=== PATIENT | female | born 1990 | race Hispanic/Latino ===

== ENCOUNTER 2019-02-09 09:45 | Inpatient (IN) | payer MEDICAID ==
--- NOTE | 2019-02-09 10:12 | C.PDOC ---
History Of Present Illness 28 y/o female, with history of depression, bipolar and manic disorder, comes in to ED stating she has thoughts of hurting herself and other people. Patient reports she was recently released from long term 2 months ago and did not go to a program after. Patient denies any physical complaints at this time. Time Seen by Provider: 02/09/19 10:09 Chief Complaint (Nursing): Psychiatric Evaluation History Per: Patient History/Exam Limitations: no limitations Onset/Duration Of Symptoms: Days Current Symptoms Are (Timing): Still Present Past Medical History Reviewed: Historical Data, Nursing Documentation, Vital Signs Family History: States: No Known Family Hx Review Of Systems Except As Marked, All Systems Reviewed And Found Negative. Constitutional: Negative for: Fever Psych: Positive for: Suicidal ideation, Other (homicidal ideation) Physical Exam - Physical Exam Appears: Non-toxic, No Acute Distress Skin: Warm, Dry Head: Atraumatic, Normacephalic Eye(s): bilateral: Normal Inspection Oral Mucosa: Moist Neck: Supple Cardiovascular: Rhythm Regular, No Murmur Respiratory: Normal Breath Sounds, No Rales, No Rhonchi, No Wheezing Extremity: Bilateral: Atraumatic, Normal Color And Temperature, Normal ROM Neurological/Psych: Oriented x3, Normal Speech ED Course And Treatment - Laboratory Results Result Diagrams: 02/09/19 14:01 02/09/19 11:33 O2 Sat by Pulse Oximetry: 95 (RA) Pulse Ox Interpretation: Normal Medical Decision Making Medical Decision Making: Plan: --Labs --UA --Ativan IM Psych called, patient was not admitted at [facility], got kicked out of the emergency room. Patient called the police and police brought her here. Disposition - Disposition Disposition: HOSPITALIZED Disposition Time: 14:10 Condition: GOOD Forms: Skin Scan (Paraguayan) - Clinical Impression Clinical Impression: Manic bipolar I disorder, Borderline personality disorder - PA / SUPPLY CHAIN MANAGER / Resident Statement MD/DO has reviewed & agrees with the documentation as recorded. - Scribe Statement The provider has reviewed the documentation as recorded by the Scribe Mary Wiggins All medical record entries made by the Scribe were at my direction and personally dictated by me. I have reviewed the chart and agree that the record accurately reflects my personal performance of the history, physical exam, medical decision making, and the department course for this patient. I have also personally directed, reviewed, and agree with the discharge instructions and disposition.
[2019-02-09 10:16] VITALS: BMI 29.0
[2019-02-09 11:45] LABS: HCG,QUALITATIVE URINE NEGATIVE (NEGATIVE)
[2019-02-09 11:51] LABS: ALB/GLOB RATIO 1.1 (1.0-2.1); ALT/SGPT 99 U/L (9-52); AST/SGOT 50 U/L (14-36); BLOOD UREA NITROGEN 16 mg/dL (7-17); CALCIUM 9.6 mg/dl (8.6-10.4); GFR NON-AFRICAN AMERICAN > 60; SQUAMOUS EPITHIAL 2 /hpf (0-5); URINE BACTERIA OCC (<OCC); URINE BILIRUBIN NEGATIVE (NEGATIVE); URINE BLOOD NEGATIVE (NEGATIVE); URINE CLARITY Hazy (Clear); URINE COLOR Amber (YELLOW); URINE GLUCOSE (UA) NORMAL (Normal); URINE LEUKOCYTE ESTERASE 2+ Leu/uL (Negative); URINE PROTEIN NEGATIVE (NEGATIVE); URINE UROBILINOGEN NORMAL mg/dL (0.2-1.0)
[2019-02-09 12:01] LABS: BARBITURATES, UR NEGATIVE (NEGATIVE); BENZODIAZEPINES, UR NEGATIVE (NEGATIVE)
[2019-02-09 12:25] LABS: PHENCYCLIDINE, UR NEGATIVE (NEGATIVE)
[2019-02-09 13:10] LABS: OPIATES, UR POSITIVE (NEGATIVE)
[2019-02-09 14:04] LABS: BASO % 0.7 % (0.0-2.0); EOS # 0.1 K/uL (0.0-0.7); EOS % 1.7 % (0.0-4.0); LYMPH # 1.1 K/uL (1.0-4.3); LYMPH % 23.1 % (20.0-40.0); MEAN CELL VOLUME 95.2 fL (81.0-99.0); MEAN CORPUSCULAR HEMOGLOBIN 32.2 pg (27.0-31.0); MEAN CORPUSCULAR HGB CONC 33.8 g/dL (33.0-37.0); MEAN PLATELET VOLUME 8.4 fL (7.2-11.7); MONO # 0.4 K/uL (0.0-0.8); NEUT # 3.2 K/uL (1.8-7.0); NEUT % 66.5 % (50.0-75.0); RBC 4.03 Mil/uL (3.80-5.20); RED CELL DISTRIBUTION WIDTH 13.8 % (11.5-14.5); WHITE BLOOD COUNT 4.8 K/uL (4.8-10.8)
--- NOTE | 2019-02-09 17:48 | PCM.BM ---
<Omar Bourne - Last Filed: 02/09/19 17:46> Treatment Plan Problems - Problems identified on initial assessmt Ineffective impulse Control Date Initiated: 02/09/19 Time Initiated: 15:50 Assessment reference: NA Status: Active Anxiety Related to substance use Date Initiated: 02/09/19 Time Initiated: 15:50 Assessment reference: NA Status: Active High Risk: Violence Date Initiated: 02/09/19 Time Initiated: 15:50 Assessment reference: NA Status: Active Treatment assets and liabiliti Patient Assests: insightful, negotiates basic needs Patient Liabilities: substance abuse - Milieu Protocol Maintain good personal hygiene: daily Encourage regular showers, daily Remind patient to perform daily oral care, daily Assist patient to perform ADL's Conduct patient checks and document Observation sheet: Q15 minutes Maintain personal safety: every shift Educate patient to report safety concerns to staff Medication safety: Monitor for expected outcome, potential side effects: every shift, Assess barriers to learning: every shift, Assess readiness for medication education: every shift <Mirella Chiu - Last Filed: 02/10/19 11:23> - Diagnosis (1) Manic bipolar I disorder Status: Acute Interventions: 02/10/19 11:23 * Assess/adjust medications daily and /or as needed * See patient on an individual basis 7x/week to assess level of manic behaviors and stability * Discuss risks, benefits, side effects and alternatives of medications * <Tereza Hernandez - Last Filed: 02/10/19 15:26> Family Contact Family involvement: Patient does not wish Family/SO involvement Family contact: Patient declines to allow family contact at present - Goals for Treatment Patient goals for treatment: "I want to got to a rehab." Discharge/Continuing Care - Education Needs Education Needs: Patient Medication, Patient Diagnosis/Disease Process, Patient Coping Skills, Patient Placement options, Patient Community resources - Discharge Discharge Criteria: Free of Suicidal thoughts, Free of agitation, Normal sleep pattern, Ability to care for self, No longer exhibiting s/s of withdrawal, Red uction of target symptoms Discharge to:: Substance Abuse Rehab - Treatment Team Participation Discussed with Family/SO: No Was Patient/Family/SO present at Treatment Team Meeting: Yes
--- NOTE | 2019-02-10 10:18 | PCM.PSYCH ---
Initial Psychiatric Evaluation - Initial Psychiatric Evaluation Type of Admission: Voluntary Legal Status: Capacity Chief Complaint (in patient's own words): I was feeling increasingly suicidal and homicidal History of Present Illness and Precipitating Events: Patient is a 28-year-old single female with a past medical history of bipolar anxiety and intrusive thoughts came to the hospital with suicidal thoughts and homicidal thoughts., She was brought in by the [place] police stating that shes been feeling quite depressed and that she wants to hurt herself. Patient told the police that she had access to a weapon. Reports that shes feeling suicidal and homicidal. Her last suicide attempt was three months ago while in longterm. States that she tried to hang herself with that sheet. States that the life science technical officer pulled her down. If she were to try again she states that she would overdose on pills. States that she wants to kill herself, but before doing so she wants to write letters to the people that "wronged her in the past". She also wants to write a letter to God asking for forgiveness. Pt states that she is not anabaptist, but she feels like were all going to hell. Patient previously receives social se curity due to mental condition. States that she cannot work due to her paranoia. Reports decreased sleep, nightmares tremors., racing and intrusive thought. Pt States that she feels guilty for the things that she has done. States that she uses drugs to help with her thoughts. States that the only thing that she enjoys is using drugs. She abuse 16 bags of IV heroin per day. She last used heroin 2 days ago. Reports spending about 40 dollars per day on cocaine. Pt has been on methadone in the past. She currently feels anxious, nauseous, states that she has been sweating, and that she had diarrhea last night. Denies visual or auditory hallucinations. ?Her psychiatrist is Dr. Roge Vigil in [facility]. she reports withdrawal symptoms including nausea, vomiting, cramps, joint pains, back pains. She remained irritable, agitated and angry throughout the interview. Past medical history History of seizures Current Medications: Active Medications Generic Name Dose Route Start Last Admin Trade Name Freq PRN Reason Stop Dose Admin Al Hydrox/Mg Hydrox/Simethicone 30 ml 02/09/19 20:08 Maalox 30 Ml PO TID PRN Indigestion / Heartburn Clonidine HCl 0.1 mg 02/09/19 20:08 Catapres PO Q4 PRN COWS Score More or Equal to 5 Dicyclomine HCl 10 mg 02/09/19 20:08 Bentyl PO Q6 PRN Muscle spasm Gabapentin 100 mg 02/10/19 10:00 02/10/19 09:15 Neurontin PO 100 mg TID ANAMIKA Administration Hydroxyzine HCl 25 mg 02/09/19 20:09 02/09/19 22:12 Atarax PO 25 mg Q6 PRN Administration Anxiety Levetiracetam 500 mg 02/09/19 18:00 02/10/19 09:15 Keppra PO 500 mg BID ANAMIKA Administration Loperamide HCl 2 mg 02/09/19 20:08 Imodium PO Q8 PRN Diarrhea Ondansetron HCl 4 mg 02/09/19 20:08 Zofran Tab PO Q8 PRN Nausea/Vomiting Quetiapine Fumarate 300 mg 02/09/19 22:00 02/09/19 21:04 Seroquel PO 300 mg HS ANAMIKA Administration Past Psychiatric History - Past Psychiatric History Previous Treatment History: Inpatient Pertinent Medical Hx (Current Medical&Sleep Prob, Allergies): Allergies Allergy/AdvReac Type Severity Reaction Status Date / Time prochlorperazine Allergy Verified 02/09/19 10:10 [From Compazine] Citalopram [celeXA] 20 mg PO DAILY 02/09/19 Methadone [Methadone HCl] 15 mg PO 02/09/19 QUEtiapine [SEROquel] 300 mg PO BID 02/09/19 levETIRAcetam [Keppra] 500 mg PO BID 02/09/19 Review of Systems - Review of Systems All systems: reviewed and no additional remarkable complaints except - Psychiatric Psychiatric: Anxiety, Irritability, Suicidal Ideation Mental Status Examination - Personal Presentation Personal Presentation: Looks stated age - Affect Affect: Constricted, Depressed - Motor Activity Motor Activity: Calm - Reliability in Providing Information Reliability in Providing Information: Fair - Speech Speech: Organized - Mood Mood: Depressed, Anxious - Formal Thought Process Formal Thought Process: No Impairment - Obsessions/Compulsions Obsessions: No Compulsions: No - Cognitive Functions Orientation: Person, Place, Situation, Time Sensorium: Alert Attention/Concentration: Attentive Abstract Thinking: Hodge Estimate of Intelligence: Below average Judgement: Imparied, as evidence by: Poor judgement, Imparied, as evidence by: Lack of insight into illness - Risk Risk: Suicidal, Diminished functioning - Limitations Limitations: Living alone DSM 5 DX - DSM 5 DSM 5 Diagnosis: Bipolar disorder mixed severe with psychotic features opioid use disorder severe Opioid withdrawal History of seizures - Recommended/Plan of Treatment Treatment Recommendations and Plan of Treatment: Bipolar disorder mixed severe with psychotic features opioid use disorder severe Opioid withdrawal History of seizures CBT Psychoeducation supportive therapy and group therapy [place] for mood Seroquel for psychosis Hydroxyzine for anxiety Methadone taper Neurontin for augmentation
[2019-02-11] MEDS: Aluminum Hydroxide/Magnesium Hydroxide Susp (30 mL) PO PRN ×2 (13:37→17:16)
--- NOTE | 2019-02-11 20:21 | PCM.PYCHPN ---
Psychiatric Progress Note - Psychiatric Progress Note Patient seen today, length of contact: 15 minutes Patient Chief Complaint: I am still feeling depressed but my sleep is better. Problems Identified/Issues Discussed: Patient seen, chart reviewed, case discussed with the staff. Issues related to illness and treatment were discussed with the patient and staff. Reported compliant with treatment with no adverse effects. Tolerating treatment very well. Patient is still feeling withdrawal symptoms including body aches, sweating, nausea, abdominal cramps. Patient has UTI, will start ciprofloxacin. Patient agreed. Aftercare discussed with the patient. Patient needs more time for stabilization. Patient denied any delusions, auditory or visual hallucinations, suicidal ideations or homicidal ideations at the time of evaluation. Medical Problems: Seizure disorder UTI Diagnostic Results: Reviewed Medication Change: Yes (Started ciprofloxacin 500 mg twice a day) Medical Record Reviewed: Yes Mental Status Examination - Cognitive Function Orientation: Person, Place, Situation, Time Memory: Intact Attention: WNL Concentration: WNL Association: WNL Fund of Knowledge: WNL Decription of patient's judgement and insights: Fair - Mood Mood: Depressed - Affect Affect: Depressed - Speech Speech: Appropriate - Formal Thought Process Formal Thought Process: No Impairment Psychotic Thoughts and Behaviors: None - Suicidal Ideation Suicidal Ideation: No - Homicidal Ideation Homicidal Ideation: Yes Goal/Treatment Plan - Goal/Treatment Plan Need for Continued Stay: Remain at risks for inpatient hospitalization, Discharge may exacerbated symptoms, Severe functional impairment Progress Toward Problem(s) and Goals/Treatment Plan: Patient/staff education. Supportive therapy. CBT for relapse prevention. [place] for abstinence. Will start ciprofloxacin 500 mg twice a day for UTI. Continue rest of the treatment as before. Estimated Date of D/C: 02/16/19 - Smoking Cessation Smoking Cessation Initiated: No
[2019-02-13] MEDS: Aluminum Hydroxide/Magnesium Hydroxide Susp (30 mL) PO PRN (09:26)
--- NOTE | 2019-02-13 21:01 | PCM.PYCHPN ---
Psychiatric Progress Note - Psychiatric Progress Note Patient seen today, length of contact: 15 minutes Patient Chief Complaint: I am still feeling depressed but my sleep is little better. Problems Identified/Issues Discussed: Patient seen, chart reviewed, case discussed with the staff. Issues related to illness and treatment were discussed with the patient and staff. Reported compliant with treatment with no adverse effects. Tolerating treatment very well. Patient is still feeling some withdrawal symptoms including body aches, sweating, nausea, abdominal cramps. Patient reported that she is anxious and worried about her aftercare. Patient has no ID and was told by the psychosocial rehabilitation counselor that her options are limited. Patient was very uncooperative during the evaluation especially with the issue of her ID. Staff reported that patient was more isolative and less sedative. Aftercare discussed with the patient. Patient needs more time for stabilization. Patient denied any delusions, auditory or visual hallucinations, suicidal ideations or homicidal ideations at the time of evaluation. Medical Problems: Seizure disorder UTI Diagnostic Results: Reviewed DSM 5 Symptoms Update: Some improvement with treatment. Medication Change: No Medical Record Reviewed: Yes Mental Status Examination - Cognitive Function Orientation: Person, Place, Situation, Time Memory: Intact Attention: WNL Concentration: WNL Association: [facility] Fund of Knowledge: [facility] Decription of patient's judgement and insights: Fair - Mood Mood: Depressed - Affect Affect: Depressed - Speech Speech: Appropriate - Formal Thought Process Formal Thought Process: No Impairment Psychotic Thoughts and Behaviors: None - Suicidal Ideation Suicidal Ideation: No - Homicidal Ideation Homicidal Ideation: No Goal/Treatment Plan - Goal/Treatment Plan Need for Continued Stay: Remain at risks for inpatient hospitalization, Discharge may exacerbated symptoms, Severe functional impairment Progress Toward Problem(s) and Goals/Treatment Plan: Patient/staff education. Supportive therapy. CBT for relapse prevention. [place] for abstinence. Continue treatment as before. Estimated Date of D/C: 02/16/19 - Smoking Cessation Smoking Cessation Initiated: No
[2019-02-14 06:13] VITALS: O2SAT 98
--- NOTE | 2019-02-14 14:32 | PCM.PYCHPN ---
Psychiatric Progress Note - Psychiatric Progress Note Patient seen today, length of contact: 15 minutes Patient Chief Complaint: I am feeling little better. I am more anxious about my aftercare. Problems Identified/Issues Discussed: Patient seen, chart reviewed, case discussed with the staff. Issues related to illness and treatment were discussed with the patient and staff. Reported compliant with treatment with no adverse effects. Tolerating treatment very well. Patient reported feeling little better. Patient reported that she is anxious and worried about her aftercare. Patient has no ID and was told by the group social worker that her options are limited. Patient was cooperative today during the evaluation. Staff reported that patient was less isolative. Aftercare discussed with the patient. Patient needs more time for stabilization. Patient denied any delusions, auditory or visual hallucinations, suicidal ideations or homicidal ideations at the time of evaluation. Medical Problems: Seizure disorder UTI Diagnostic Results: Reviewed DSM 5 Symptoms Update: Some improvement with treatment. Medication Change: No Medical Record Reviewed: Yes Mental Status Examination - Cognitive Function Orientation: Person, Place, Situation, Time Memory: Intact Attention: WNL Concentration: WNL Association: WN Fund of Knowledge: [facility] Decription of patient's judgement and insights: Fair - Mood Mood: Depressed - Affect Affect: Depressed - Speech Speech: Appropriate - Formal Thought Process Formal Thought Process: No Impairment Psychotic Thoughts and Behaviors: None - Suicidal Ideation Suicidal Ideation: No - Homicidal Ideation Homicidal Ideation: No Goal/Treatment Plan - Goal/Treatment Plan Need for Continued Stay: Remain at risks for inpatient hospitalization, Discharge may exacerbated symptoms, Severe functional impairment Progress Toward Problem(s) and Goals/Treatment Plan: Patient/staff education. Supportive therapy. CBT for relapse prevention. [place] for abstinence. Continue treatment as before. Patient will go to [facility] for follow-up care after discharge from the hospital. Estimated Date of D/C: 02/16/19 - Smoking Cessation Smoking Cessation Initiated: No
--- NOTE | 2019-02-15 15:56 | PCM.PYCHPN ---
Psychiatric Progress Note - Psychiatric Progress Note Patient seen today, length of contact: 15 minutes Patient Chief Complaint: I am not feeling better. I am more anxious about my aftercare. Problems Identified/Issues Discussed: Patient seen, chart reviewed, case discussed with the staff. Issues related to illness and treatment were discussed with the patient and staff. Reported compliant with treatment with no adverse effects. Tolerating treatment very well. Patient reported not feeling little better. Patient reported that she is anxious and worried about her aftercare. That was making her more upset. Patient will go to [facility] for follow-up care after discharge from the hospital. Staff reported that patient was less isolative. Aftercare discussed with the patient. Patient needs more time for stabilization. Patient denied any delusions, auditory or visual hallucinations, suicidal ideations or homicidal ideations at the time of evaluation. Medical Problems: Seizure disorder UTI Diagnostic Results: Reviewed DSM 5 Symptoms Update: Some improvement with treatment. Medication Change: No Medical Record Reviewed: Yes Mental Status Examination - Cognitive Function Orientation: Person, Place, Situation, Time Memory: Intact Attention: WNL Concentration: WNL Association: WN Fund of Knowledge: [facility] Decription of patient's judgement and insights: Fair - Mood Mood: Anxious - Affect Affect: Other (Appropriate) - Speech Speech: Appropriate - Formal Thought Process Formal Thought Process: No Impairment Psychotic Thoughts and Behaviors: None - Suicidal Ideation Suicidal Ideation: No - Homicidal Ideation Homicidal Ideation: No Goal/Treatment Plan - Goal/Treatment Plan Need for Continued Stay: Remain at risks for inpatient hospitalization, Dischar ge may exacerbated symptoms, Severe functional impairment Progress Toward Problem(s) and Goals/Treatment Plan: Patient/staff education. Supportive therapy. CBT for relapse prevention. [place] for abstinence. Continue treatment as before. Patient will go to [facility] for follow-up care after discharge from the hospital. Estimated Date of D/C: 02/16/19 - Smoking Cessation Smoking Cessation Initiated: No
[2019-02-15] MEDS: Aluminum Hydroxide/Magnesium Hydroxide Susp (30 mL) PO PRN (19:25)
[2019-02-16 06:37] VITALS: BP 104/70; PULSE 95; RESP 20; TEMP 98.6
--- NOTE | 2019-02-16 17:11 | PCM.PYCHDC ---
Mental Status Examination - Mental Status Examination Orientation: Person, Place, Situation, Time Memory: Intact Mood: Other (Irritable) Affect: Other (Appropriate) Speech: Appropriate Attention: WNL Concentration: WNL Association: WNL Fund of Knowledge: WNL Formal Thought Process: No Impairment Description of patient's judgement and insight: Poor Psychotic Thoughts and Behaviors: None Suicidal Ideation: No Current Homicidal Ideation?: No Discharge Summary - Discharge Note Reason for Hospitalization: Bipolar disorder mixed severe with psychotic features opioid use disorder severe Opioid withdrawal History of seizures Consultations:: List each consultation separately and include: 1. Reason for request. 2. Findings. 3. Follow-up Summary of Hospital Course include:: 1. Description of specific treatment plan utilized for patients during their course of treatmen. 2. Summarize the time- course for resolution of acute symptoms and/or regressed behaviors. 3. Describe issues identified and worked on during hospitalization. 4. Describe medication utilized. 5. Describe medical problems identified and treated. 6. Reassessment of suicide risk Summary of Hospital Course: Patient is a 28-year-old single female with a past medical history of bipolar anxiety and intrusive thoughts came to the hospital with suicidal thoughts and homicidal thoughts., She was brought in by the [place] police stating that shes been feeling quite depressed and that she wants to hurt herself. Patient told the police that she had access to a weapon. Reports that shes feeling suicidal and homicidal. Her last suicide attempt was three months ago while in group home. States that she tried to hang herself with that sheet. States that the photographic intelligence officer pulled her down. If she were to try again she states that she would overdose on pills. States that she wants to kill herself, but before doing so she wants to write letters to the people that "wronged her in the past". She also wants to write a letter to God asking for forgiveness. Pt states that she is not anabaptist, but she feels like were all going to hell. Patient previously receives social security due to mental condition. States that she cannot work due to her paranoia. Reports decreased sleep, nightmares tremors., racing and intrusive thought. Pt States that she feels guilty for the things that she has done. States that she uses drugs to help with her thoughts. States that the only thing that she enjoys is using drugs. She abuse 16 bags of IV heroin per day. She last used heroin 2 days ago. Reports spending about 40 dollars per day on cocaine. Pt has been on methadone in the past. She currently feels anxious, nauseous, states that she has been sweating, and that she had diarrhea last night. Denies visual or auditory hallucinations. ?Her psychiatrist is Dr. Roge Vigil in [facility]. she reports withdrawal symptoms including nausea, vomiting, cramps, joint pains, back pains. She remained irritable, agitated and angry throughout the interview. Past medical history History of seizures During her stay in the hospital patient was treated with methadone taper for opioid withdrawal symptoms. Patient was also started on lithium, Seroquel, and gabapentin. Patient was also started on other PRN medications. With above treatment patient started feeling better. Most of the time patient was isolative in her room. Patient was angry most of the time because of her aftercare options as patient had no ID and without ID patient's options for aftercare were limited. Discussed with patient this issue in detail. Patient understood and agreed to go to [facility]. Today patient was stable, had no withdrawal symptoms and was ready for discharge. Before discharge from the hospital 1 of the staff found member that patient was kissing with a male patient. Patient reported that she has no money to pay for the medications. 1 of the staff member contacted with a local pharmacy so that patient can get medications in about $10 which the staff member was ready to pay for gabapentin and lithium. Patient also demanded that the hospital should provide her Seroquel 300 mg twice a day. This medication is expensive. The matter discussed with the patient, patient became angry and started cursing the whole staff including psychiatrist. Security was called. Patient started cursing even more in the presence of security. Patient was escorted securely to the lobby. A taxi voucher was given to the patient so that patient can go to [facility]. Patient was awake, alert and oriented x3. Denied any delusions, auditory or visual hallucinations, no suicidal ideations or homicidal ideation at the time of evaluation. - Final Diagnosis (DSM 5) Condition upon Discharge: GOOD Disposition: HOME/ ROUTINE Follow-up Treatment Plan: Patient/staff education. Supportive therapy. CBT for relapse prevention. MT for abstinence. Continue treatment as before. Patient will go to [facility] for follow-up care after discharge from the hospital. Prescriptions/Medication Reconciliation: Gabapentin [Neurontin] 300 mg PO TID #90 cap [place] Carbonate [[place] Carbonate 300MG] 300 mg PO TID #90 cap QUEtiapine [Seroquel] 300 mg PO HS #30 tab QUEtiapine [Seroquel] 300 mg PO DAILY #30 tab - Smoking Cessation Smoking Cessation Medication prescribed: No - Antipsychotic Medications Pt discharged on 2 or more routine antipsychotic medications: No
== END 2019-02-16 13:05 | disposition home or self-care (01) | DRG 772 ==
LOC: C.ER 09:45 → C.5E 14:13
PROVIDERS: ADMIT Psychiatry & Neurology Psychiatry; ATTEND Psychiatry & Neurology Psychiatry
PROC: HZ2ZZZZ Detoxification Services for Substance Abuse Treatment (ICD-10-PCS; principal; 2019-02-09)
PROC: HZ42ZZZ Group Counseling for Substance Abuse Treatment, Cognitive-Behavioral (ICD-10-PCS; 2019-02-09)
PROC: HZ52ZZZ Individual Psychotherapy for Substance Abuse Treatment, Cognitive-Behavioral (ICD-10-PCS; 2019-02-09)
PROC: HZ59ZZZ Individual Psychotherapy for Substance Abuse Treatment, Supportive (ICD-10-PCS; 2019-02-09)
PROC: HZ56ZZZ Individual Psychotherapy for Substance Abuse Treatment, Psychoeducation (ICD-10-PCS; 2019-02-09)
PROC: HZ46ZZZ Group Counseling for Substance Abuse Treatment, Psychoeducation (ICD-10-PCS; 2019-02-09)
PROC: GZHZZZZ Group Psychotherapy (ICD-10-PCS; 2019-02-09)
PROC: GZ58ZZZ Individual Psychotherapy, Cognitive-Behavioral (ICD-10-PCS; 2019-02-09)
PROC: GZ56ZZZ Individual Psychotherapy, Supportive (ICD-10-PCS; 2019-02-09)
DX: F11.23 Opioid dependence with withdrawal (principal); R45.851 Suicidal ideations; F31.64 Bipolar disorder, current episode mixed, severe, with psychotic features; R45.850 Homicidal ideations; F60.3 Borderline personality disorder; G40.909 Epilepsy, unspecified, not intractable, without status epilepticus; N39.0 Urinary tract infection, site not specified; Z91.5 Personal history of self-harm; F41.9 Anxiety disorder, unspecified